=== PATIENT | male | born 1995 | race Two or more races ===

== ENCOUNTER 2020-09-10 12:32 | Emergency (ER) | payer SELFPAY ==
[~2020-09-10] VITALS: Ht 182.9 cm; Wt 72.6 kg
[2020-09-10] MEDS: SODIUM CHLORIDE 0.9% 1,000 ML IV ONE ×3 (13:00→15:48)
[2020-09-10 14:44] LABS: Basophils # (auto) 0.1 10 ^3/uL (0-0.2); Basophils % (auto) 1.4 % (0.0-2.0); Eosinophils # (auto) 0.1 10 ^3/uL (0-0.8); Eosinophils % (auto) 1.6 % (0.0-7.0); Hematocrit 36.9 % (41.0-53.0); Hemoglobin 12.4 g/dL (13.5-17.5); Lymphocytes # (auto) 1.9 10 ^3/uL (0.4-5.4); Lymphocytes % (auto) 30.8 % (10.0-50.0); Mean Corpuscular Hemoglobin 30.7 pg (28.0-32.0); Mean Corpuscular Hgb Conc. 33.5 g/dL (32.0-36.0); Mean Corpuscular Volume 91.5 fL (80.0-100.0); Monocytes # (auto) 0.6 10 ^3/uL (0-1.3); Monocytes % (auto) 9.9 % (0.0-12.0); Neutrophils # (auto) 3.5 10 ^3/uL (1.6-8.6); Neutrophils % (auto) 56.3 % (37.0-80.0); Nucleated Red Blood Cells % 0.1 %; Platelet Count (auto) 242 10^3/uL (140-450); Red Blood Cells 4.04 10^6/uL (4.5-5.90); Red Cell Distribution Width 15.2 % (11.8-14.3); White Blood Cell 6.2 10^3/uL (4.4-10.8)
[2020-09-10 15:14] LABS: Alanine Aminotransferase 34 U/L (16-61); Albumin 3.6 g/dL (3.4-5.0); Alkaline Phosphatase 75 U/L (45-117); Anion Gap 7 (5-15); Aspartate Aminotransferase 23 U/L (15-37); BUN/Creatinine Ratio 14.7; Bilirubin, Total 0.3 mg/dL (0.2-1.0); Blood Alcohol < 3.0 mg/dL (0-5); Blood Urea Nitrogen 10 mg/dL (7-18); Calcium 8.2 mg/dL (8.5-10.1); Carbon Dioxide 27 mmol/L (21-32); Chloride 108 mmol/L (98-107); GFR African American 180 mL/min; GFR Non-African American 149 mL/min; Glucose 103 mg/dL (74-106); Potassium 3.4 mmol/L (3.5-5.1); Sodium 142 mmol/L (136-145); Total Protein 7.5 g/dL (6.4-8.2)
[2020-09-10] MEDS: HALOPERIDOL LACTATE 5 MG/ML INJ VIAL IM ONE (15:40)
[2020-09-10] MEDS: LORazepam 2MG/ML-1ML VIAL IV ONE (15:40)
[2020-09-10] MEDS: diphenhdrAMINE HCL 50 MG/1 ML VL IV ONE (15:40)
[2020-09-11 05:00] VITALS: BP 101/64
== END 2020-09-11 06:04 | disposition still patient (30) ==
LOC: EDBD 12:32 → ER 12:32
DX: R41.82 Altered mental status, unspecified (principal); G92 Toxic encephalopathy; F19.10 Other psychoactive substance abuse, uncomplicated; F17.210 Nicotine dependence, cigarettes, uncomplicated; Z20.822 Contact with and (suspected) exposure to COVID-19
CPT/HCPCS: 36415; 70450; 80053; 80320; 85025; 87426; 96361; 96372; 96374; 96375; 99285; C9803; J1200; J1630; J2060; U0003